=== PATIENT | female | born 1980 | race African-American/Black ===

== ENCOUNTER 2022-09-17 10:23 | Emergency (ER) | payer OTHER ==
[~2022-09-17] VITALS: Ht 167.6 cm; Wt 75.0 kg
[2022-09-17 10:26] VITALS: BP 163/110
[2022-09-17] MEDS ORDERED: ACETAMINOPHEN 325MG TABLET PO ONE (11:00)
[2022-09-17 11:53] LABS: HEMATOCRIT. 33.6 % (36.0-48.0); MEAN CORPUSCULAR HEMOGLOBIN 24.7 pg (28.0-32.0); MEAN CORPUSCULAR VOLUME 75.6 fL (81.0-99.0); MEAN PLATELET VOLUME 8.3 fl (7.4-10.4); PLATELET 239 x1000/uL (130-400); RED BLOOD CELL COUNT 4.45 mill/uL (4.2-5.4)
[2022-09-17 12:05] LABS: CHLORIDE 109 mEq/L (98-107)
[2022-09-17 12:06] LABS: PROTHROMBIN TIME 10.5 sec (9.6-11.0)
[2022-09-17 12:29] LABS: PLATELET ESTIMATE NORMAL
[2022-09-17 12:50] LABS: CLARITY URINE CLEAR (CLEAR); COLOR URINE YELLOW (YELLOW); KETONES URINE NEGATIVE (NEGATIVE); LEUKOCYTE ESTERASE URINE TRACE (NEGATIVE); NITRITE URINE NEGATIVE (NEGATIVE); OCCULT BLOOD URINE 1+ (NEGATIVE); PH URINE 5.5 (4.5-8.0); PROTEIN URINE NEGATIVE (NEGATIVE); SPECIFIC GRAVITY URINE 1.013 (1.005-1.030); UROBILINOGEN URINE 0.2 E.U./dL (0.2-1.0)
[2022-09-17] MEDS ORDERED: MOM MT (16:07)
[2022-09-17] MEDS ORDERED: FEO PR (16:07)
== END 2022-09-17 18:31 | disposition home or self-care (01) ==
LOC: ER 10:23
DX: K56.41 Fecal impaction (principal); B34.9 Viral infection, unspecified
CPT/HCPCS: 36415; 74176; 80053; 81003; 85025; 99284

== ENCOUNTER 2024-08-19 21:46 | Emergency (ER) | payer MEDICAID, OTHER ==
[~2024-08-19] VITALS: Ht 170.2 cm; Wt 75.0 kg
[~2024-08-19 21:46] MED LIST: FEO PR; MOM MT
[2024-08-19 22:07] VITALS: TEMP 97.8; O2SAT 100
[2024-08-19] MEDS: METOCLOPRAMIDE HCL 10MG/2ML VIAL IV ONE (22:30)
[2024-08-19] MEDS: SODIUM CHLORIDE 0.9% 500 ML IV ONE (22:30)
[2024-08-19] MEDS ORDERED: ACETAMINOPHEN 325MG TABLET PO ONE (22:30)
[2024-08-19 22:42] LABS: BASOPHILS % 0.7 % (0.0-2.0); HEMATOCRIT. 37.2 % (36.0-48.0); HEMOGLOBIN. 12.3 g/dL (12.0-16.0); LYMPHOCYTES % 32.8 % (20.0-50.0); MEAN CORPUSCULAR HEMOGLOBIN 27.4 pg (28.0-32.0); MEAN CORPUSCULAR HGB CONC 33.2 g/dL (31.0-37.0); MEAN CORPUSCULAR VOLUME 82.5 fL (81.0-99.0); MEAN PLATELET VOLUME 7.8 fl (7.4-10.4); MONOCYTES % 9.1 % (2.0-8.0); NEUTROPHILS % 54.4 % (40.0-76.0); PLATELET 274 x1000/uL (130-400); RED BLOOD CELL COUNT 4.51 mill/uL (4.2-5.4); RED CELL DISTRIBUTION WIDTH 16.2 % (11.6-14.6); WHITE BLOOD COUNT 7.8 x1000/uL (4.5-11.0)
[2024-08-19 22:48] LABS: CHLORIDE 106 mEq/L (98-107); POTASSIUM 3.9 mEq/L (3.5-5.1); SODIUM 141 mEq/L (136-145)
[2024-08-19 22:49] LABS: CALCIUM 9.5 mg/dL (8.7-10.4); CARBON DIOXIDE 28 mEq/L (21-32)
[2024-08-19 22:54] LABS: CREATININE 0.8 mg/dL (0.6-1.0); GLUCOSE 105 mg/dL (70-105); UREA NITROGEN BLOOD 13 mg/dL (9-23)
[2024-08-19 23:04] LABS: INR 0.9; PROTHROMBIN TIME 9.9 sec (9.6-11.0)
[2024-08-19 23:12] LABS: HCG SCREEN NEGATIVE
[2024-08-19] MEDS: HYDROCHLOROTHIAZIDE 12.5MG CAPSULE PO ONE (23:30)
[2024-08-19] MEDS: ACETAMINOPHEN 1000MG/100ML 100 ML IV ONE (23:45)
[2024-08-20] MEDS ORDERED: ACET-2708 MT (02:09)
[2024-08-20] MEDS ORDERED: METO-293 MT (02:09)
[2024-08-20 02:35] VITALS: BP 150/101; PULSE 86; RESP 18; O2SAT 100
== END 2024-08-20 02:35 | disposition home or self-care (01) ==
LOC: ER 21:46
DX: G44.201 Tension-type headache, unspecified, intractable (principal); I10 Essential (primary) hypertension; J45.909 Unspecified asthma, uncomplicated; Z85.9 Personal history of malignant neoplasm, unspecified
CPT/HCPCS: 99285; 96365; 96361; 80048; 84703; 85025; 85610; 85730; 36415; 70450; J7040; J2765; J0131